=== PATIENT | male | born 1995 | race Caucasian/White ===

== ENCOUNTER 2024-06-26 11:15 | Outpatient (RCR) | payer MEDICAID, SELFPAY | END 2024-10-24 23:59 | disposition home or self-care (01) | PROVIDERS: PCP Family Medicine; Visit Provider Family Medicine | DX: M25.572 Pain in left ankle and joints of left foot (principal); S93.402A Sprain of unspecified ligament of left ankle, initial encounter; M25.472 Effusion, left ankle; R53.1 Weakness; R26.9 Unspecified abnormalities of gait and mobility; R26.81 Unsteadiness on feet; Z51.89 Encounter for other specified aftercare | CPT/HCPCS: 97110; 97112; 97140; 97161 ==

== ENCOUNTER 2024-08-10 13:44 | Outpatient (CLI) | payer MEDICAID, SELFPAY | END 2024-08-10 13:45 | disposition home or self-care (01) | PROVIDERS: PCP Family Medicine | DX: R10.11 Right upper quadrant pain (principal) | CPT/HCPCS: 80053; 83690 ==